=== PATIENT | male | born 1935 | race Caucasian/White ===

== ENCOUNTER 2018-07-21 21:06 | Inpatient (IN) | payer MEDICARE ==
[~2018-07-21] VITALS: Ht 182.9 cm; Wt 66.2 kg
[~2018-07-21 21:06] MED LIST: ASPIRIN81 MG PO; BENICAR HCT 401 EAC1 PO; CALCITRIOL0.25 MCG PO; MULTAQ 400MG T400 MG PO; PLAVIX75 MG PO; PRAVASTATIN SOD40 MG PO; PRAVASTATIN SOD80 MG PO; PRILOSEC OTC20 MG PO; TRAZODONE HCL50 MG PO; nasacort
--- OUTSIDE RECORDS SUMMARY | 2018-07-21 21:10 | XMS REPORT | Continuity of Care Document ---
Author Author Juan Antonio wright [facility] Interface Address Unknown Phone Unavailable Problems Problem Status Onset Date Classification Date Reported Comments Source PROSTATE CANCER Active 04/27/2018 [facility] DX: R35.0=FREQUENCY OF MICTURITION, R39. Active 01/11/2018 [facility] R35.0 - FREQUENCY OF MICTURITION Active 01/01/2018 [facility] R97.20 - ELEVATED PROSTATE SPECIFIC ANT Active 08/05/2017 [facility] Enlarged prostate with lower urinary tract symptoms Active Problem 07/19/2018 [facility], [facility] Wright,[facility] Cataract Resolved Problem 07/19/2018 [facility], A[facility] Wright,[facility] Arrhythmia Resolved Problem 07/19/2018 [facility], ALAYNA Wright,[facility] Bone fracture Resolved Problem 07/19/2018 [facility], ALAYNA Wright,[facility] Acid reflux Resolved Problem 07/19/2018 [facility], ALAYNA Wright,[facility] Frequency of micturition Active Problem 07/19/2018 [facility], ALAYNA Wright,[facility] Malignant neoplasm of prostate Active Problem 07/19/2018 [facility], ALAYNA Wright,[facility] Prophylactic antibiotic Active Problem 07/19/2018 [facility], ALAYNA Wright,[facility] Elevated PSA Active Problem 07/19/2018 [facility], ALAYNA Wright,[facility] Prostate cancer screening Active Problem 07/19/2018 [facility], ALAYNA Wright,[facility] Urgency of urination Active Problem 07/19/2018 [facility], ALAYNA Wright,[facility] MALIGNANT NEOPLASM OF PROSTATE Active [facility] FREQUENCY OF MICTURITION Active [facility] Medications Medication Details Route Status Patient Instructions Ordering Provider Order Date Source Ceftriaxone 1 gm, Route: IM, Drug form: PDR/INJ, ONCE, Dosing Weight 78.182, kg, Start date: 12/13/17 0:53:00 CDT, Stop date: 12/13/17 0:53:00 CDT No Longer Active 12/13/2017 [facility] Nitrofurantoin 100 MG Oral Capsule [Macrobid] 100 mg=1 cap, PO, BID, pt to start the evening prior to the procedure and please assist pt to find one fleets enema, X 7 day, # 14 cap, 0 Refill(s), Pharmacy: [facility] [id number] No Longer Active 11/09/2017 [facility] Nitrofurantoin 100 MG Oral Capsule [Macrobid] 100 mg=1 cap, PO, BID, X 30 day, # 60 cap, 0 Refill(s), Pharmacy: [facility] [id number] No Longer Active 07/30/2017 [facility] Allergies, Adverse Reactions, Alerts Substance Category Reaction Severity Reaction type Status Date Reported Comments Source Immunizations Immunization Date Given Site Status Last Updated Comments Source Results Order Name Results Value Reference Range Date Interpretation Comments Source Abdomen/Pelvis wo IV contrast CT Abdomen/Pelvis wo IV contrast CT Clinical Indication: - pt refused IV contrast per kidney DrGrace. Comparison: 12/07/2011. TECHNIQUE: Sequential trans-axial images were obtained through the abdomen and pelvis without the administration of IV iodinated contrast. Coronal and sagittal reconstructions were obtained. Dose: UIE=474 mGy-cm Findings: Lower thorax: Minimal scarring the lungs bilaterally. Liver: Normal. Gallbladder: Surgically absent. Spleen: Normal. Pancreas: Normal. Adrenals: Normal. Kidneys: Bilateral perinephric stranding. 2 mm nonobstructing calculus within the lower pole of the right kidney. No hydronephrosis. Bladder: Normal. Reproductive organs: Normal. Abdominal and pelvic lymph nodes: Normal. Vasculature: Severe atherosclerotic disease of the abdominal aorta. There is a 3.2 cm infrarenal abdominal aortic aneurysm which is unchanged from the prior study. Coronary calcifications. Bowel: Diverticulosis of the colon. No evidence of diverticulitis. Large duodenal diverticulum. Peritoneum: Normal. Osseous structures: Spondylolysis at L5. There is grade 1 anterolisthesis of L5 on S1. Mild compression fracture of T11 with loss of 10% of the height of vertebral body. Prior median sternotomy. IMPRESSION: Right nephrolithiasis but no hydronephrosis or definite ureteral calculus. Diverticulosis without evidence of diverticulitis. No evidence of metastasis. SL: SOPHIA 01/27/2018 - - Read by: Jim Piper MD Dictated Date/time: 01/28/18 02:09 Electronically Signed by: Jim Piper MD 01/28/18 02:20 FINAL REPORT [facility] Bone scan NM Bone scan NM Study: Bone scan NM Clinical Indication: - prostate cancer Comparison: Nuclear medicine bone scan from 12/07/2011. CT abdomen and pelvis from 01/27/2018. TECHNIQUE: Approximately 4 hours after the intravenous administration of 25 mCi of technetium 99m MDP, delayed whole-body images were obtained in the anterior and posterior projections. Additional images of the calvarium, chest, and pelvis were acquired. FINDINGS: Subtle focus of uptake in the mid left posterior cervical spine is seen, likely correlating to degenerative change. Degenerative change of the right sternoclavicular joint is noted. 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 Degenerative changes in the bilateral mid feet are seen. Osteoarthrosis of the right 1st MTP joint is also seen. Subtle globular uptake in the region of the greater trochanter of the right femur is also present. Normal soft tissue, renal, and bladder activity is identified. IMPRESSION: 1. Degenerative changes throughout the osseous structures, as described above. 2. Subtle globular uptake in the region of the greater trochanter of the right femur. No corresponding abnormality is seen on CT of the abdomen and pelvis from 01/27/2018. This may correspond to an area of mild enthesitis. 3. No definitive evidence of osteoblastic metastatic disease. SL: [id number] 01/27/2018 - - Read by: Hai Sargent MD Dictated Date/time: 01/27/18 13:35 Electronically Signed by: Hai Sargent MD 01/27/18 13:40 FINAL REPORT [facility] URINE AND STOOL POC UA LeukEst Negative *NA* (12/30/17 10:37 AM) Negative 12/30/2017 [facility] URINE AND STOOL POC UA Nit Negative *NA* (12/30/17 10:37 AM) Negative 12/30/2017 [facility] URINE AND STOOL POC UA Glu Negative mg/dL Negative mg/dL 12/30/2017 [facility] URINE AND STOOL POC UA Prot Negative mg/dL Negative mg/dL 12/30/2017 [facility] URINE AND STOOL POC UA pH 5.5 5.0 - 8.0 12/30/2017 [facility] URINE AND STOOL POC UA Bili Negative *NA* (12/30/17 10:37 AM) Negative 12/30/2017 [facility] URINE AND STOOL POC UA Ket Negative mg/dL Negative mg/dL 12/30/2017 [facility] URINE AND STOOL POC UA Bld Negative *NA* (12/30/17 10:37 AM) Negative 12/30/2017 [facility] URINE AND STOOL POC UA Uro 0.2 EU/dL 0.1 - 1.0 12/30/2017 [facility] URINE AND STOOL POC UA Color Yellow *NA* (12/30/17 10:37 AM) Yellow 12/30/2017 [facility] URINE AND STOOL POC UA SG 1.025 <=1.030 12/30/2017 [facility] URINE AND STOOL POC UA Turbidity Clear *NA* (12/30/17 10:37 AM) Clear 12/30/2017 [facility] URINE AND STOOL POC UA Ket Trace mg/dL Negative mg/dL 12/13/2017 [facility] URINE AND STOOL POC UA Bld Negative *NA* (12/13/17 10:48 AM) Negative 12/13/2017 [facility] URINE AND STOOL POC UA Bili Small *ABN* (12/13/17 10:48 AM) Negative 12/13/2017 [facility] URINE AND STOOL POC UA Uro 0.2 EU/dL 0.1 - 1.0 12/13/2017 [facility] URINE AND STOOL POC UA Nit Negative *NA* (12/13/17 10:48 AM) Negative 12/13/2017 [facility] URINE AND STOOL POC UA LeukEst Negative *NA* (12/13/17 10:48 AM) Negative 12/13/2017 [facility] URINE AND STOOL POC UA Glu Negative mg/dL Negative mg/dL 12/13/2017 [facility] URINE AND STOOL POC UA Turbidity Clear *NA* (12/13/17 10:48 AM) Clear 12/13/2017 [facility] URINE AND STOOL POC UA pH 5.5 5.0 - 8.0 12/13/2017 [facility] URINE AND STOOL POC UA SG 1.020 <=1.030 12/13/2017 [facility] URINE AND STOOL POC UA Prot Negative mg/dL Negative mg/dL 12/13/2017 [facility] URINE AND STOOL POC UA Color Yellow *NA* (12/13/17 10:48 AM) Yellow 12/13/2017 [facility] URINE AND STOOL POC UA LeukEst Negative *NA* (08/31/17 1:15 PM) Negative 08/31/2017 [facility] URINE AND STOOL POC UA Nit Negative *NA* (08/31/17 1:15 PM) Negative 08/31/2017 [facility] URINE AND STOOL POC UA Turbidity Clear *NA* (08/31/17 1:15 PM) Clear 08/31/2017 [facility] URINE AND STOOL POC UA Ket Negative mg/dL Negative mg/dL 08/31/2017 [facility] URINE AND STOOL POC UA Color Yellow *NA* (08/31/17 1:15 PM) Yellow 08/31/2017 [facility] URINE AND STOOL POC UA pH 5.5 5.0 - 8.0 08/31/2017 [facility] URINE AND STOOL POC UA SG 1.015 <=1.030 08/31/2017 [facility] URINE AND STOOL POC UA Uro 0.2 EU/dL 0.1 - 1.0 08/31/2017 [facility] URINE AND STOOL POC UA Bld Negative *NA* (08/31/17 1:15 PM) Negative 08/31/2017 [facility] URINE AND STOOL POC UA Bili Negative *NA* (08/31/17 1:15 PM) Negative 08/31/2017 [facility] URINE AND STOOL POC UA Glu Negative mg/dL Negative mg/dL 08/31/2017 [facility] URINE AND STOOL POC UA Prot Negative mg/dL Negative mg/dL 08/31/2017 [facility] URINE AND STOOL POC UA Prot Negative mg/dL Negative mg/dL 07/19/2017 [facility] URINE AND STOOL POC UA pH 5.5 5.0 - 8.0 07/19/2017 [facility] URINE AND STOOL POC UA Glu Negative mg/dL Negative mg/dL 07/19/2017 [facility] URINE AND STOOL POC UA Ket Negative mg/dL Negative mg/dL 07/19/2017 [facility] URINE AND STOOL POC UA Bili Negative *NA* (07/19/17 10:01 AM) Negative 07/19/2017 [facility] URINE AND STOOL POC UA Bld Negative *NA* (07/19/17 10:01 AM) Negative 07/19/2017 [facility] URINE AND STOOL POC UA Nit Negative *NA* (07/19/17 10:01 AM) Negative 07/19/2017 [facility] URINE AND STOOL POC UA LeukEst Negative *NA* (07/19/17 10:01 AM) Negative 07/19/2017 [facility] URINE AND STOOL POC UA Uro 0.2 EU/dL 0.1 - 1.0 07/19/2017 [facility] URINE AND STOOL POC UA Turbidity Clear *NA* (07/19/17 10:01 AM) Clear 07/19/2017 [facility] URINE AND STOOL POC UA Color Yellow *NA* (07/19/17 10:01 AM) Yellow 07/19/2017 [facility] URINE AND STOOL POC UA SG 1.020 <=1.030 07/19/2017 [facility] URINE AND STOOL POC UA LeukEst Negative *NA* (03/15/17 9:27 AM) Negative 03/15/2017 [facility] URINE AND STOOL POC UA Color Yellow *NA* (03/15/17 9:27 AM) Yellow 03/15/2017 [facility] URINE AND STOOL POC UA Uro 1.0 EU/dL 0.1 - 1.0 03/15/2017 [facility] URINE AND STOOL POC UA Bld Negative *NA* (03/15/17 9:27 AM) Negative 03/15/2017 [facility] URINE AND STOOL POC UA Nit Negative *NA* (03/15/17 9:27 AM) Negative 03/15/2017 [facility] URINE AND STOOL POC UA Bili Negative *NA* (03/15/17 9:27 AM) Negative 03/15/2017 [facility] URINE AND STOOL POC UA Ket Negative mg/dL Negative mg/dL 03/15/2017 [facility] URINE AND STOOL POC UA pH 6.5 5.0 - 8.0 03/15/2017 [facility] URINE AND STOOL POC UA Glu Negative mg/dL Negative mg/dL 03/15/2017 [facility] URINE AND STOOL POC UA SG 1.015 <=1.030 03/15/2017 [facility] URINE AND STOOL POC UA Prot Negative mg/dL Negative mg/dL 03/15/2017 [facility] URINE AND STOOL POC UA Turbidity Clear *NA* (03/15/17 9:27 AM) Clear 03/15/2017 [facility] Vital Signs Vital Sign Value Date Comments Source Weight 79.545 12/30/2017 [facility] BMI Calculated 23.78 12/30/2017 [facility] Height 182.88 cm 12/30/2017 [facility] Heart Rate 86 12/30/2017 [facility] Systolic (mm Hg) 154 12/30/2017 [facility] Diastolic (mm Hg) 81 12/30/2017 [facility] BMI Calculated 23.38 12/13/2017 [facility] Height 182.88 cm 12/13/2017 [facility] Weight 78.182 12/13/2017 [facility] Heart Rate 84 12/13/2017 [facility] Systolic (mm Hg) 155 12/13/2017 [facility] Diastolic (mm Hg) 79 12/13/2017 [facility] Weight 79.545 08/31/2017 [facility] BMI Calculated 22.52 08/31/2017 [facility] Systolic (mm Hg) 146 08/31/2017 [facility] Diastolic (mm Hg) 82 08/31/2017 [facility] Height 187.96 cm 08/31/2017 [facility] Heart Rate 77 08/31/2017 [facility] Weight 79.545 07/19/2017 [facility] Heart Rate 66 07/19/2017 [facility] Systolic (mm Hg) 132 07/19/2017 [facility] Diastolic (mm Hg) 76 07/19/2017 [facility] Weight 80.455 03/15/2017 [facility] BMI Calculated 24.06 03/15/2017 [facility] Height 182.88 cm 03/15/2017 [facility] Heart Rate 70 03/15/2017 [facility] Systolic (mm Hg) 140 03/15/2017 [facility] Diastolic (mm Hg) 84 03/15/2017 [facility] Encounters Location Location Details Encounter Type Encounter Number Reason For Visit Attending Provider ADM Date DC Date Status Source Outpatient [id number] [facility]2015 [id number]/24[facility]2015 [facility] [id number] [facility] 09[facility]16[facility]2015 [facility] [place] [facility] [id number] [facility] 01/16[facility]2016 [facility] [place] [facility] [id number] [facility] 05[facility]07[facility]2016 [facility] [place] [facility] [id number] [facility] 05/11/2016 [facility] [id number] [facility] 05/14/2016 [facility] [place] [facility] [id number] TUNG BREANNE 08/24/2016 Active [facility] Outpatient [id number] TUNG BREANNE 11/30/2016 Active [facility] Outpatient [id number] TUNG BREANNE 03/15/2017 Active [facility] Outpatient [id number] Lukasz Mayers 03/15/2017 03/16/2017 [facility] Outpatient [id number] TUNG BREANNE 07/19/2017 Active [facility] Outpatient [id number] Lukaszcale Mayers 07/19/2017 07/20/2017 [facility] Outpatient [id number] TUNG BREANNE 08/31/2017 Active [facility] Outpatient [id number] Lukaszcale Mayers 08/31/2017 09/01/2017 [facility] Outpatient Imaging [place] [facility] [id number] Tung Breanne 11/08/2017 11/08/2017 [facility] Outpatient [id number] TUNG BREANNE 12/13/2017 Active [facility] Outpatient [id number] PROCEDURE ROOM 3 12/13/2017 Active [facility] Outpatient [id number] Tung Breanne 12/13/2017 12/14/2017 [facility] U[facility] Outpatient [id number] Tung Breanne 12/13/2017 12/14/2017 [facility] Outpatient [id number] TUNG BERANNE 12/20/2017 Active [facility] Ambulatory Pre- Reg [id number] Tung Breanne 12/20/2017 12/20/2017 [facility] Outpatient [id number] TUNG BREANNE 12/30/2017 Active [facility] Outpatient [id number] Tung Breanne 12/30/2017 12/31/2017 [facility] Outpatient [id number] TUNG BREANNE 02/14/2018 Active [facility] Outpatient [id number] TUNG BREANNE 04/11/2018 Active [facility] Recurring [id number] Nestor Yang 05/03/2018 06/02/2018 [facility] Outpatient [id number] TUNG BREANNE 07/25/2018 Active [facility] Procedures Procedure Code Date Perfomer Comments Source Complex uroflowmetry (eg, calibrated electronic equipment) 38536 12/30/2017 [facility] Measurement of post-voiding residual urine and/or bladder capacity by ultrasound, non-imaging 58171 12/30/2017 [facility] Injection, anesthetic agent; other peripheral nerve or branch 50903 12/13/2017 [facility] Measurement of post-voiding residual urine and/or bladder capacity by ultrasound, non-imaging 21094 12/13/2017 [facility] Complex uroflowmetry (eg, calibrated electronic equipment) 17840 12/13/2017 [facility] Biopsy, prostate; needle or punch, single or multiple, any approach 90395 12/13/2017 [facility] Complex uroflowmetry (eg, calibrated electronic equipment) 90773 07/19/2017 [facility] Measurement of post-voiding residual urine and/or bladder capacity by ultrasound, non-imaging 64824 07/19/2017 [facility] Cataract surgery [id number] [facility] Heart procedure [id number] [facility] Insertion of arterial stent [id number] [facility] V[facility]ctomy [id number] [facility] Cataract surgery [id number] [facility] Heart procedure [id number] [facility]ion of arterial [id number] [facility] [place] [facility] [id number] [facility] Cataract surgery [id number] [facility] Heart procedure [id number] [facility] Insertion of arterial stent [id number] [facility] Vasectomy [id number] [facility]
--- OUTSIDE RECORDS SUMMARY | 2018-07-21 21:10 | XMS REPORT | Clinical Summary ---
Author Author [facility] Address Unknown Phone Unavailable Care Team Providers Care Electrical Contacts Adjuster Name Role Phone Anish Negrete MD PCP Allergies No Known Allergies Medications End Date Status Medication Sig Dispensed Refills Start Date Active pantoprazole (PROTONIX) TK 1 T PO QD 0 40 MG EC tablet 7 Active dronedarone (MULTAQ) 400 Take 400 mg 0 mg tablet by mouth 2 (two) times a day with meals. Active clopidogrel (PLAVIX) 75 Take 75 mg by 0 mg tablet mouth daily. Active aspirin (ECOTRIN) 81 MG Take 81 mg by 0 enteric coated tablet mouth daily. Active calcitriol (ROCALTROL) Take 0.25 mcg 0 0.25 MCG capsule by mouth daily. Active olmesartan (BENICAR) 5 MG Take 5 mg by 0 tablet mouth daily. Active pravastatin (PRAVACHOL) Take 80 mg by 0 40 MG tablet mouth daily. Active traZODone (DESYREL) 100 Take 100 mg 0 MG tablet by mouth nightly. Active Problems Problem Noted Date Arthralgia of shoulder region, left 03/08/2017 Social History Date Tobacco Use Types Packs/Day Years Used Never Smoker Smokeless Tobacco: Never Used Alcohol Use Drinks/Week oz/Week Comments No Sex Assigned at Date Recorded Not on file Industry Job Start Date Occupation Not on file Not on file Not on file Travel End Travel History Travel Start No recent travel history available. Last Filed Vital Signs Not on file Plan of Treatment Health Maintenance Due Date Last Done Comments SHINGLES VACCINES (#1) 1985 65+ PNEUMOCOCCAL VACCINE 01/30/2000 (1 of 2 - PCV13) PNEUMOCOCCAL 01/30/2000 POLYSACCHARIDE VACCINE AGE 65 AND OVER INFLUENZA VACCINE 11/24/2017 Results Not on fileafter 07/20/2017 Insurance Payer Benefit Subscriber ID Type Phone Address Plan / Group AETNA AETNA xxxxxxxxxx HMO HMO,POS,EP O, [facility] MEDICARE MEDICARE xxxxxxxxxx Medicare [place], [place] PART A AND B Advance Directives Patient has advance care planning documents on file. For more information, annie phelan contact: Bertin Hayden [address] [place] [address]
--- OUTSIDE RECORDS SUMMARY | 2018-07-21 21:11 | XMS REPORT | Summary of Care ---
Author Author [facility] Address Unknown Phone Unavailable Encounter HQ Wai(FIN) [id number] Date(s): 12/20/17 - 12/20/17 [facility] [address], [address] [phone] Attending Physician: Haroldo Raymundo MD Vital Signs No data available for this section Problem List Condition Effective Dates Status Health Status Informant Enlarged prostate Active with lower urinary tract symptoms(Confirmed) Cataract(Confirmed) Resolved Arrhythmia(Confirmed Resolved ) Bone Resolved fracture(Confirmed) Acid Resolved reflux(Confirmed) Frequency of Active micturition(Confirme d) Malignant neoplasm Active of prostate(Confirmed) Prophylactic Active antibiotic(Confirmed ) Elevated Active PSA(Confirmed) Prostate cancer Active screening(Confirmed) Urgency of Active urination(Confirmed) Allergies, Adverse Reactions, Alerts Substance Reaction Severity Status NKDA Active Medications No data available for this section Results No data available for this section Immunizations No data available for this section Procedures Procedure Date Related Diagnosis Body Site Status Cataract surgery Completed Heart procedure Completed Insertion of arterial stent Completed Vasectomy Completed Social History Social History Type Response Substance Abuse Use: None. Exercise Exercise type: Walking.1, 2 Employment/School Status: Retired. Alcohol Never Smoking Status Never smoker; Ready to change: No; Exposure to Tobacco Smoke None; Cigarette Smoking Last 365 Days No; Reg Smoking Cessation Counseling No entered on: 04/11/18 1Golf 3-4 times a week 2Minimal Assessment and Plan No data available for this section
--- OUTSIDE RECORDS SUMMARY | 2018-07-21 21:11 | XMS REPORT | Summary of Care ---
Author Author [facility] [place] [facility] Address Unknown Phone Unavailable Encounter MARTHA Carreno(CHARIS) [id number] Date(s): 03/15/17 - 03/15/17 [facility] [address] [facility], [address] [phone] Discharge Disposition: Home or Self Care Attending Physician: Haroldo Raymundo MD Referring Physician: Lukasz Mayers MD Vital Signs Most recent to 1 oldest [Reference Range]: Height 182.88 cm (03/15/17 9:39 AM) Blood Pressure 140/84 mmHg [90-140/60-90 mmHg] (03/15/17 9:39 AM) Peripheral Pulse 70 bpm Rate [60-100 bpm] (03/15/17 9:39 AM) Weight 80.455 kg (03/15/17 9:39 AM) Body Mass Index 24.06 m2 (03/15/17 9:39 AM) Problem List Condition Effective Dates Status Health Status Informant Enlarged prostate Active with lower urinary tract symptoms(Confirmed) Cataract(Confirmed) Resolved Arrhythmia(Confirmed Resolved ) Bone Resolved fracture(Confirmed) Acid Resolved reflux(Confirmed) Frequency of Active micturition(Confirme d) Malignant neoplasm Active of prostate(Confirmed) Elevated Active PSA(Confirmed) Prostate cancer Active screening(Confirmed) Urgency of Active urination(Confirmed) Allergies, Adverse Reactions, Alerts Substance Reaction Severity Status NKDA Active Medications No Known Medications Results URINE AND STOOL Most recent to 1 oldest [Reference Range]: POC UA Turbidity Clear [Clear] *NA* (03/15/17 9:27 AM) POC UA Color Yellow [Yellow] *NA* (03/15/17 9:27 AM) POC UA pH [5.0-8.0] 6.5 (03/15/17 9:27 AM) POC UA SG [<=1.030] 1.015 (03/15/17 9:27 AM) POC UA Glu [Negative Negative mg/dL mg/dL] *NA* (03/15/17 9:27 AM) POC UA Bld Negative [Negative] *NA* (03/15/17 9:27 AM) POC UA Ket [Negative Negative mg/dL mg/dL] *NA* (03/15/17 9:27 AM) POC UA Prot Negative mg/dL [Negative mg/dL] *NA* (03/15/17 9:27 AM) POC UA Uro [0.1-1.0 1.0 EU/dL EU/dL] (03/15/17 9:27 AM) POC UA Bili Negative [Negative] *NA* (03/15/17 9:27 AM) POC UA LeukEst Negative [Negative] *NA* (03/15/17 9:27 AM) POC UA Nit Negative [Negative] *NA* (03/15/17 9:27 AM) Immunizations No data available for this section Procedures Procedure Date Related Diagnosis Body Site Cataract surgery Heart procedure Insertion of arterial stent Vasectomy Social History Social History Type Response Substance Abuse Use: None. Exercise Exercise type: Walking.1, 2 Employment/School Status: Retired. Alcohol Never Smoking Status Unknown if ever smoked; Ready to change: No; Exposure to Tobacco Smoke None; Cigarette Smoking Last 365 Days No; Reg Smoking Cessation Counseling No 1Golf 3-4 times a week 2Minimal Assessment and Plan No data available for this section
--- OUTSIDE RECORDS SUMMARY | 2018-07-21 21:11 | XMS REPORT | Summary of Care ---
Author Author [facility] Organization [facility] Address Unknown Phone Unavailable Encounter MARTHA Carreno(CHARIS) [id number] Date(s): 05/03/18 - 06/01/18 [facility] [address] [place] [address]- [phone] Discharge Disposition: Home or Self Care Attending Physician: Nestor Lopez MD Vital Signs No data available for [...]
--- OUTSIDE RECORDS SUMMARY | 2018-07-21 21:11 | XMS REPORT | Summary of Care ---
Author Author [facility] [place] [facility] Address Unknown Phone Unavailable Encounter HQ Wai(FIN) [id number] Date(s): 12/13/17 - 12/13/17 [facility] [address] [facility], [address] [phone] Discharge Disposition: Home or Self Care Attending Physician: Haroldo Raymundo MD Vital Signs [...]
--- OUTSIDE RECORDS SUMMARY | 2018-07-21 21:11 | XMS REPORT | Summary of Care ---
Author Author [facility] [place] [facility] [place] Address Unknown Phone Unavailable Encounter MARTHA Carreno(CHARIS) [id number] Date(s): 12/30/17 - 12/30/17 [facility] [address] [address]- Discharge Disposition: Home or Self Care Attending Physician: Haroldo Raymundo MD Vital Signs Most recent to 1 oldest [Reference Range]: Height 182.88 cm (12/30/17 10:21 AM) Blood Pressure 154/81 mmHg [90-140/60-90 mmHg] *HI* (12/30/17 10:21 AM) Peripheral Pulse 86 bpm Rate [60-100 bpm] (12/30/17 10:21 AM) Weight 79.545 kg (12/30/17 10:21 AM) Body Mass Index 23.78 m2 (12/30/17 10:21 AM) Problem List Condition Effective Dates Status [...] Range]: POC UA Turbidity Clear [Clear] *NA* (12/30/17 10:37 AM) POC UA Color Yellow [Yellow] *NA* (12/30/17 10:37 AM) POC UA pH [5.0-8.0] 5.5 (12/30/17 10:37 AM) POC UA SG [<=1.030] 1.025 (9/6/18 10:37 AM) POC UA Glu [Negative Negative mg/dL mg/dL] *NA* (12/30/17 10:37 AM) POC UA Bld Negative [Negative] *NA* (12/30/17 10:37 AM) POC UA Ket [Negative Negative mg/dL mg/dL] *NA* (12/30/17 10:37 AM) POC UA Prot Negative mg/dL [Negative mg/dL] *NA* (12/30/17 10:37 AM) POC UA Uro [0.1-1.0 0.2 EU/dL EU/dL] (12/30/17 10:37 AM) POC UA Bili Negative [Negative] *NA* (12/30/17 10:37 AM) POC UA LeukEst Negative [Negative] *NA* (12/30/17 10:37 AM) POC UA Nit Negative [Negative] *NA* (12/30/17 10:37 AM) Immunizations No data available for this section Procedures Procedure Date Related Diagnosis Body Site Status Complex uroflowmetry (eg, calibrated 12/30/17 Completed electronic equipment) Measurement of post-voiding residual urine 12/30/17 Completed and/or bladder capacity by ultrasound, non-imaging Cataract surgery Completed Heart procedure Completed Insertion [...]
--- OUTSIDE RECORDS SUMMARY | 2018-07-21 21:11 | XMS REPORT | Summary of Care ---
Author Author [facility] Organization [facility] Address Unknown Phone Unavailable Encounter MARTHA Carreno(CHARIS) [id number] Date(s): 07/19/17 - 07/19/17 [facility] [address] [facility], [address] [phone] Discharge Disposition: Home or Self Care Attending Physician: Haroldo Raymundo MD Referring Physician: Lukasz Mayers MD Vital Signs Most recent to 1 oldest [Reference Range]: Blood Pressure 132/76 mmHg [90-140/60-90 mmHg] (07/19/17 10:06 AM) Peripheral Pulse 66 bpm Rate [60-100 bpm] (07/19/17 10:06 AM) Weight 79.545 kg (07/19/17 10:06 AM) Problem List Condition Effective Dates Status Health Status Informant Enlarged prostate Active with lower urinary tract symptoms(Confirmed) Cataract(Confirmed) Resolved Arrhythmia(Confirmed Resolved ) Bone Resolved fracture(Confirmed) Acid Resolved reflux(Confirmed) Frequency of Active micturition(Confirme d) Malignant neoplasm Active of prostate(Confirmed) Elevated Active PSA(Confirmed) Prostate cancer Active screening(Confirmed) Urgency of Active urination(Confirmed) Allergies, Adverse Reactions, Alerts Substance Reaction Severity Status NKDA Active Medications Macrobid 100 mg oral capsule 100 mg=1 cap, PO, BID, X 30 day, # 60 cap, 0 Refill(s), Pharmacy: [facility] [id number] Start Date: 07/30/17 Stop Date: 08/29/17 Status: Completed Results URINE AND STOOL Most recent to 1 oldest [Reference Range]: POC UA Turbidity Clear [Clear] *NA* (07/19/17 10:01 AM) POC UA Color Yellow [Yellow] *NA* (07/19/17 10:01 AM) POC UA pH [5.0-8.0] 5.5 (07/19/17 10:01 AM) POC UA SG [<=1.030] 1.020 (07/19/17 10:01 AM) POC UA Glu [Negative Negative mg/dL mg/dL] *NA* (07/19/17 10:01 AM) POC UA Bld Negative [Negative] *NA* (07/19/17 10:01 AM) POC UA Ket [Negative Negative mg/dL mg/dL] *NA* (07/19/17 10:01 AM) POC UA Prot Negative mg/dL [Negative mg/dL] *NA* (07/19/17 10:01 AM) POC UA Uro [0.1-1.0 0.2 EU/dL EU/dL] (07/19/17 10:01 AM) POC UA Bili Negative [Negative] *NA* (07/19/17 10:01 AM) POC UA LeukEst Negative [Negative] *NA* (07/19/17 10:01 AM) POC UA Nit Negative [Negative] *NA* (07/19/17 10:01 AM) Immunizations No data available for this section Procedures Procedure Date Related Diagnosis Body Site Status Complex uroflowmetry (eg, calibrated 07/19/17 Completed electronic equipment) Measurement of post-voiding residual urine 07/19/17 Completed and/or bladder capacity by ultrasound, non-imaging [...] Reg Smoking Cessation Counseling No entered on: 08/31/17 1Golf 3-4 times a week 2Minimal Assessment and Plan No data available for this section
--- OUTSIDE RECORDS SUMMARY | 2018-07-21 21:11 | XMS REPORT | Summary of Care ---
Author Author [facility] Organization [facility] Address Unknown Phone Unavailable Encounter MARTHA Carreno(CHARIS) [id number] Date(s): 12/13/17 - 12/13/17 [facility] [address] [facility], [address] [phone] Discharge Disposition: Home or Self Care Attending Physician: Haroldo Raymundo MD Referring Physician: Lukasz Mayers MD Vital Signs Most recent to 1 oldest [Reference Range]: Height 182.88 cm (12/13/17 11:29 AM) Blood Pressure 155/79 mmHg [90-140/60-90 mmHg] *HI* (12/13/17 11:29 AM) Peripheral Pulse 84 bpm Rate [60-100 bpm] (12/13/17 11:29 AM) Weight 78.182 kg (12/13/17 11:29 AM) Body Mass Index 23.38 m2 (12/13/17 11:29 AM) Problem List Condition Effective Dates Status [...] Substance Reaction Severity Status NKDA Active Medications cefTRIAXone 1 gm, Route: IM, Drug form: PDR/INJ, ONCE, Dosing Weight 78.182, kg, Start date: 12/13/17 0:53:00 CDT, Stop date: 12/13/17 0:53:00 CDT Start Date: 12/13/17 Stop Date: 12/19/17 Status: Completed Macrobid 100 mg oral capsule 100 mg=1 cap, PO, BID, pt to start the evening prior to the procedure and please assist pt to find one fleets enema, X 7 day, # 14 cap, 0 Refill(s), Pharmacy: [email or web address] [id number] Start Date: 11/09/17 Stop Date: 11/16/17 Status: Completed Results URINE AND STOOL Most recent to 1 oldest [Reference Range]: POC UA Turbidity Clear [Clear] *NA* (12/13/17 10:48 AM) POC UA Color Yellow [Yellow] *NA* (12/13/17 10:48 AM) POC UA pH [5.0-8.0] 5.5 (12/13/17 10:48 AM) POC UA SG [<=1.030] 1.020 (12/13/17 10:48 AM) POC UA Glu [Negative Negative mg/dL mg/dL] *NA* (12/13/17 10:48 AM) POC UA Bld Negative [Negative] *NA* (12/13/17 10:48 AM) POC UA Ket [Negative Trace mg/dL mg/dL] *ABN* (12/13/17 10:48 AM) POC UA Prot Negative mg/dL [Negative mg/dL] *NA* (12/13/17 10:48 AM) POC UA Uro [0.1-1.0 0.2 EU/dL EU/dL] (12/13/17 10:48 AM) POC UA Bili Small [Negative] *ABN* (12/13/17 10:48 AM) POC UA LeukEst Negative [Negative] *NA* (12/13/17 10:48 AM) POC UA Nit Negative [Negative] *NA* (12/13/17 10:48 AM) Immunizations No data available for this section Procedures Procedure Date Related Diagnosis Body Site Status Biopsy, prostate; needle or punch, single or 12/13/17 Completed multiple, any approach Complex uroflowmetry (eg, calibrated 12/13/17 Completed electronic equipment) Injection, anesthetic agent; other peripheral 12/13/17 Completed nerve or branch Measurement of post-voiding residual urine 12/13/17 Completed and/or bladder capacity by ultrasound, non-imaging [...]
--- OUTSIDE RECORDS SUMMARY | 2018-07-21 21:11 | XMS REPORT | Summary of Care ---
Author Author [facility] Organization [facility] [place] Address Unknown Phone Unavailable Encounter HQ Wai(FIN) [id number] Date(s): 11/08/17 - 11/08/17 [facility] [address] [place] [phone] Attending Physician: Haroldo Raymundo MD Referring Physician: Haroldo Raymundo MD Vital Signs No [...]
--- OUTSIDE RECORDS SUMMARY | 2018-07-21 21:11 | XMS REPORT | Summary of Care ---
Author Author [facility] Organization [facility] Address Unknown Phone Unavailable Encounter MARTHA Carreno(CHARIS) [id number] Date(s): 08/31/17 - 08/31/17 [facility] [address] [facility], [address] [phone] Discharge Disposition: Home or Self Care Attending Physician: Haroldo Raymundo MD Referring Physician: Lukasz Mayers MD Vital Signs Most recent to 1 oldest [Reference Range]: Height 187.96 cm (08/31/17 1:17 PM) Blood Pressure 146/82 mmHg [90-140/60-90 mmHg] *HI* (08/31/17 1:17 PM) Peripheral Pulse 77 bpm Rate [60-100 bpm] (08/31/17 1:17 PM) Weight 79.545 kg (08/31/17 1:17 PM) Body Mass Index 22.52 m2 (08/31/17 1:17 PM) Problem List Condition Effective Dates Status Health [...] Range]: POC UA Turbidity Clear [Clear] *NA* (08/31/17 1:15 PM) POC UA Color Yellow [Yellow] *NA* (08/31/17 1:15 PM) POC UA pH [5.0-8.0] 5.5 (08/31/17 1:15 PM) POC UA SG [<=1.030] 1.015 (08/31/17 1:15 PM) POC UA Glu [Negative Negative mg/dL mg/dL] *NA* (08/31/17 1:15 PM) POC UA Bld Negative [Negative] *NA* (08/31/17 1:15 PM) POC UA Ket [Negative Negative mg/dL mg/dL] *NA* (08/31/17 1:15 PM) POC UA Prot Negative mg/dL [Negative mg/dL] *NA* (08/31/17 1:15 PM) POC UA Uro [0.1-1.0 0.2 EU/dL EU/dL] (08/31/17 1:15 PM) POC UA Bili Negative [Negative] *NA* (08/31/17 1:15 PM) POC UA LeukEst Negative [Negative] *NA* (08/31/17 1:15 PM) POC UA Nit Negative [Negative] *NA* (08/31/17 1:15 PM) Immunizations No data available for this section [...]
--- NOTE | 2018-07-21 21:50 | NUR ---
RADIOLOGY AT BEDSIDE FOR CXR AT THIS TIME.
--- NOTE | 2018-07-21 22:07 | Diagnostic Imaging Report ---
EXAMINATION: CHEST SINGLE (PORTABLE) INDICATION: Pneumonia. COMPARISON: None FINDINGS: AP view TUBES and LINES: None. LUNGS: Retrocardiac airspace opacity. PLEURA: No pleural effusion or pneumothorax. HEART AND MEDIASTINUM: The cardiomediastinal silhouette is unremarkable. There are atherosclerotic calcifications within the aorta. BONES AND SOFT TISSUES: No acute osseous lesion. Median sternotomy wires. Soft tissues are unremarkable. UPPER ABDOMEN: No free air under the diaphragm. IMPRESSION: Retrocardiac airspace opacity may represent atelectasis or developing pneumonia in the appropriate clinical setting. Signed by: DR. Fabio Lagunas MD on 07/21/2018 10:04 PM
[2018-07-21 22:14] LABS: BASOPHILS % 0.6 % (0.0-1.0); EOSINOPHILS # (AUTO) 0.1 (0.0-0.4); EOSINOPHILS % 2.1 % (0.0-6.0); HEMATOCRIT 37.7 % (38.2-49.6); HEMOGLOBIN 12.4 g/dL (14.0-18.0); LYMPHOCYTES # (AUTO) 0.7 (1.0-3.2); LYMPHOCYTES % 12.6 % (18.0-39.1); MEAN CORPUSCULAR HEMOGLOBIN 32.2 pg (28-32); MEAN CORPUSCULAR HGB CONC 32.9 g/dL (31-35); MEAN CORPUSCULAR VOLUME 97.9 fL (81-99); MONOCYTES # (AUTO) 0.5 (0.2-0.8); MONOCYTES % 9.9 % (4.4-11.3); NEUTROPHILS # (AUTO) 3.9 (2.1-6.9); NEUTROPHILS % 74.6 % (38.7-80.0); PLATELET COUNT 198 x10e3/uL (140-360); RED BLOOD COUNT 3.85 x10e6/uL (4.3-5.7); RED CELL DISTRIBUTION WIDTH 13.4 % (11.7-14.4)
[2018-07-21 22:30] LABS: ALBUMIN 3.4 g/dL (3.5-5.0); ALBUMIN/GLOBULIN RATIO 1.1 (0.8-2.0); ANION GAP 13.5 mmol/L (8-16); CALCIUM 9.5 mg/dL (8.4-10.2); CREATININE, SERUM 2.15 mg/dL (0.72-1.25); POTASSIUM 4.5 mmol/L (3.5-5.1)
[2018-07-21] MEDS ORDERED: CEFTRIAXONE SOD 1 GM/NS 50 ML 50 ML IV ONE (22:30)
[2018-07-21 22:36] LABS: CREATINE KINASE MB 3.3 ng/mL (0-5.0)
[2018-07-21] MEDS ORDERED: CEFTRIAXONE SOD 1 GM/NS 50 ML 50 ML IV SCH (23:15)
[2018-07-21] MEDS ORDERED: ASPIRIN 81 MG CHEW TAB PO ONE (23:15)
[2018-07-21] MEDS ORDERED: AZITHROMYCIN 500MG/NS 250 ML 250 ML ONE (23:20)
[2018-07-21] MEDS ORDERED: SODIUM CHLORIDE FLUSH 10 ML SYR INJ PRN (23:30)
[2018-07-21] MEDS ORDERED: TEMAZEPAM15 MG PO (23:32)
[2018-07-21] MEDS ORDERED: MULTAQ 400MG T400 MG PO (23:32)
[2018-07-21] MEDS ORDERED: PLAVIX75 MG PO (23:32)
[2018-07-21] MEDS ORDERED: CALCITRIOL0.25 MCG PO (23:33)
[2018-07-21] MEDS ORDERED: ASPIR 8181 MG PO (23:33)
[2018-07-21] MEDS ORDERED: PANTOPRAZOLE SO40 MG PO (23:33)
[2018-07-21] MEDS ORDERED: PRAVASTATIN SOD80 MG PO (23:34)
[2018-07-21] MEDS ORDERED: TRAZODONE HCL50 MG PO (23:35)
[2018-07-21] MEDS ORDERED: BENICAR20 MG PO (23:39)
[2018-07-21] MEDS: AZITHROMYCIN 500MG/NS 250 ML 250 ML IV SCH (23:40)
--- OUTSIDE RECORDS SUMMARY | 2018-07-21 23:41 | XMS REPORT | Clinical Summary ---
Author Author [facility] Address Unknown Phone Unavailable Care Team Providers Care Ship Fitter Name Role Phone Anish Negrete MD PCP [...] HMO,POS,EP O, MC/EC MEDICARE MEDICARE xxxxxxxxxx Medicare [place], [place] PART A AND B Advance Directives Patient has advance care planning documents on file. For more information, annie phelan contact: Bertin Hayden [address] [place] [address]
--- OUTSIDE RECORDS SUMMARY | 2018-07-21 23:42 | XMS REPORT ---
Author Author [facility] Address Unknown Phone Unavailable Care Team Providers Care Passenger Brakeman Name Role Phone Lucrecia EDMONDSON Unavailable Unavailable Problems This patient has no known problems. Allergies, Adverse Reactions, Alerts This patient has no known allergies or adverse reactions. Medications This patient has no known medications. Results Test Description Test Time Test Comments Text Results Atomic Results Result Comments CHEST SINGLE (PORTABLE) 2018-07-21 21:59:00 [place] [address] Patient Name: MISA PARIS MR #: [id number] : 1935 Age/Sex: 83/M Req #: [id number] Adm Physician: Ordered by: HUI MALDONADO PAYING TELLER Report #: [id number] Location: ER Room/Bed: Procedure: [id number] DX/CHEST SINGLE (PORTABLE) Exam Date: 07/21/18 Exam Time: 2144 REPORT STATUS: Signed EXAMINATION: CHEST SINGLE (PORTABLE) IN DICATION: Pneumonia. COMPARISON: None FINDINGS: AP view TUBES and LINES: None. LUNGS: Retrocardiac airspace opacity. PLEURA: No pleural effusion or pneumothorax. HEART AND MEDIASTINUM: The cardiomediastinal silhouette is unremarkable. There are atherosclerotic calcifications within the aorta. BONES AND SOFT TISSUES: No acute osseous lesion. Median sternotomy wires. Soft tissues are unremarkable. UPPER ABDOMEN: No free air under the diaphragm. IMPRESSION: Retrocardiac airspace opacity may represent atelectasis or developing pneumonia in the appropriate clinical setting. Signed by: DR. Fabio Metz MD on 07/21/2018 10:04 PM Dictated By: FABIO METZ MD 03 Transcribed By: CHAS on 07/21/182203 COPY TO: HUI MALDONADO PAYING TELLER
[2018-07-22] VITALS (8 sets, daily range): BP systolic 98–127; BP diastolic 60–87
[2018-07-22] MEDS ORDERED: SODIUM CHLORIDE 0.9% 250ML 250 ML ONE (00:37)
[2018-07-22] MEDS: SIMVASTATIN 40 MG TAB PO SCH ×2 (00:43→20:50)
[2018-07-22] MEDS: TEMAZEPAM 15 MG CAP PO SCH ×2 (00:43→20:50)
[2018-07-22] MEDS: DRONEDARONE 400 MG TAB PO SCH ×3 (00:43→20:49)
[2018-07-22 06:18] LABS: BASOPHILS % 0.6 % (0.0-1.0); EOSINOPHILS # (AUTO) 0.2 (0.0-0.4); EOSINOPHILS % 3.2 % (0.0-6.0); HEMATOCRIT 36.3 % (38.2-49.6); LYMPHOCYTES # (AUTO) 0.8 (1.0-3.2); LYMPHOCYTES % 15.9 % (18.0-39.1); MEAN CORPUSCULAR HEMOGLOBIN 32.9 pg (28-32); MEAN CORPUSCULAR HGB CONC 33.1 g/dL (31-35); MEAN CORPUSCULAR VOLUME 99.5 fL (81-99); MONOCYTES # (AUTO) 0.5 (0.2-0.8); NEUTROPHILS # (AUTO) 3.3 (2.1-6.9); NEUTROPHILS % 69.1 % (38.7-80.0); PLATELET COUNT 176 x10e3/uL (140-360); RED BLOOD COUNT 3.65 x10e6/uL (4.3-5.7); RED CELL DISTRIBUTION WIDTH 13.3 % (11.7-14.4)
[2018-07-22 06:52] LABS: ALBUMIN 3.1 g/dL (3.5-5.0); ALBUMIN/GLOBULIN RATIO 1.1 (0.8-2.0); ANION GAP 13.2 mmol/L (8-16); CALCIUM 8.9 mg/dL (8.4-10.2); CREATININE, SERUM 2.22 mg/dL (0.72-1.25); POTASSIUM 4.2 mmol/L (3.5-5.1)
[2018-07-22 06:59] LABS: CREATINE KINASE MB 3.1 ng/mL (0-5.0)
[2018-07-22] MEDS: CALCITRIOL 0.25 MCG CAP PO SCH (08:38)
[2018-07-22] MEDS: PANTOPRAZOLE SOD 40 MG TABEC PO SCH (08:38)
[2018-07-22] MEDS: OLMESARTAN 20 MG TAB PO SCH (08:38)
[2018-07-22] MEDS: CLOPIDOGREL BISULFATE 75 MG TAB PO SCH (08:38)
[2018-07-22] MEDS: ASPIRIN 81 MG CHEW TAB PO SCH (08:38)
[2018-07-22] MEDS: ALBUTEROL/IPRATROPIUM 3 ML NEB NEB SCH ×2 (14:10→19:45)
[2018-07-22 14:40] LABS: CREATINE KINASE MB 3.1 ng/mL (0-5.0)
--- NOTE | 2018-07-22 16:13 | NUR ---
CM SPOKE TO PATIENT AT BEDSIDE REGARDING IMM LETTER. IMM LETTER GIVEN WITH EXPLANATION BASED ON ANTICIPATED DISCHARGE DATE. ORIGINAL SIGNED AND PLACED IN CHART; COPY OF ORIGINAL DOCUMENT GIVEN TO PATIENT AT BEDSIDE AND PLACED IN CARE TRANSITION FOLDER. CM CONTACT INFORMATION GIVEN TO PATIENT FOR ANY NEEDS OR CONCERNS. PATIENT WITH NO FURTHER QUESTIONS.
[2018-07-22] MEDS: TRAZODONE HCL 50 MG TAB PO SCH (20:49)
[2018-07-22] MEDS: CEFTRIAXONE SOD 1 GM/NS 50 ML 50 ML IV SCH (20:50)
[2018-07-22] MEDS ORDERED: CEFTRIAXONE SOD 1 GM/NS 50 ML 50 ML IV SCH (22:00)
[2018-07-22] MEDS: AZITHROMYCIN 500MG/NS 250 ML 250 ML IV SCH (22:09)
[2018-07-23] VITALS (7 sets, daily range): BP systolic 87–143; BP diastolic 55–66
[2018-07-23] MEDS: ALBUTEROL/IPRATROPIUM 3 ML NEB NEB SCH ×4 (01:00→19:13)
[2018-07-23] MEDS: DRONEDARONE 400 MG TAB PO SCH ×2 (08:35→20:28)
[2018-07-23] MEDS: OLMESARTAN 20 MG TAB PO SCH (08:35)
[2018-07-23] MEDS: CALCITRIOL 0.25 MCG CAP PO SCH (08:35)
[2018-07-23] MEDS: PANTOPRAZOLE SOD 40 MG TABEC PO SCH (08:35)
[2018-07-23] MEDS: ASPIRIN 81 MG CHEW TAB PO SCH (08:35)
[2018-07-23] MEDS: CLOPIDOGREL BISULFATE 75 MG TAB PO SCH (08:35)
[2018-07-23] MEDS: ACETAMINOPHEN 325 MG TAB PO PRN ×2 (08:45→19:29)
--- NOTE | 2018-07-23 18:52 | Consultation ---
DATE OF CONSULTATION: Cardiology Consultation REASON FOR CONSULTATION: Shortness of breath. HISTORY OF PRESENT ILLNESS: This is an 83-year-old man with a history of paroxysmal atrial fibrillation on Multaq, coronary artery disease status post coronary artery bypass graft surgery, hypertension, hyperlipidemia, and pneumonia, who presented to the emergency department with progressively worsening shortness of breath. The patient also reports severe fatigue with his symptoms. The patient has symptoms progressing over the last 2 to 3 days, which have progressively worsened, marked severe in intensity, associated with some cough and shortness of breath. Upon arrival here, he was hemodynamically stable with mildly elevated troponin of 0.5, and was noted to have pneumonia. REVIEW OF SYSTEMS: A 12-point review of system was conducted, is negative, otherwise as stated above in the HPI. PAST MEDICAL HISTORY: As stated above. PAST SURGICAL HISTORY: CABG. FAMILY HISTORY: No premature coronary artery disease or sudden cardiac . SOCIAL HISTORY: No illicit drug use, alcohol use, or tobacco use. ALLERGIES: NO KNOWN DRUG ALLERGIES. MEDICATIONS: See medication reconciliation form. PHYSICAL EXAMINATION: VITAL SIGNS: Temperature is 96.4, heart rate is 72, respirations are 20, blood pressure is 124/85, and oxygen saturation 98% on room air. GENERAL: He is well-appearing well-built elderly man, lying comfortably in bed. HEENT: Head, normocephalic and atraumatic. Eyes, the extraocular muscles are intact. Conjunctivae are clear. NECK: No JVD. No bruits. CARDIOVASCULAR: Regular rate with ectopy. No murmurs. LUNGS: Clear to auscultation. ABDOMEN: Soft, nontender, and nondistended. Normoactive bowel sounds. EXTREMITIES: No clubbing, cyanosis, or edema. VASCULAR: 2+ pulses. SKIN: Warm, dry, intact. NEUROLOGIC: No focal deficits noted. LABORATORY DATA: Reviewed. Creatinine 2.2. Troponin I 0.7, 0.5, and 0.5. BNP is 2229. Chest x-ray shows retrocardiac airspace opacity. TELEMETRY: Monitoring revealed sinus rhythm with premature ventricular complexes. IMPRESSION: 1. Shortness of breath. 2. Pneumonia. 3. Acute congestive heart failure. 4. Fxvpz-jz-hhhxazg kidney disease. 5. Premature ventricular complexes. 6. Paroxysmal atrial fibrillation. 7. Coronary artery disease, status post coronary artery bypass graft surgery. 8. Hypertension. 9. Hyperlipidemia. RECOMMENDATIONS: We will check a 2D echocardiogram. The patient has been started on antibiotics for his pneumonia. Continue aspirin, Plavix, olmesartan, Multaq, and simvastatin. We will add low-dose Lasix for diuresis. Thank you for the consultation. We will follow along with you. DO REBEKAH Benton/MODL /[id number]
--- NOTE | 2018-07-23 19:20 | NUR ---
Received patient awake on bed, family members at the bedside, not in distress. Call light within easy reach, advised to call for assistance when needed, will continue to monitor
[2018-07-23] MEDS: TRAZODONE HCL 50 MG TAB PO SCH (20:27)
[2018-07-23] MEDS: SIMVASTATIN 40 MG TAB PO SCH (20:28)
[2018-07-23] MEDS: TEMAZEPAM 15 MG CAP PO SCH (20:28)
[2018-07-23] MEDS ORDERED: SODIUM CHLORIDE 0.9% 250ML 250 ML ONE (20:40)
[2018-07-23] MEDS: CEFTRIAXONE SOD 1 GM/NS 50 ML 50 ML IV SCH (21:23)
[2018-07-23] MEDS: AZITHROMYCIN 500MG/NS 250 ML 250 ML IV SCH (22:19)
[2018-07-24] VITALS (7 sets, daily range): BP systolic 96–119; BP diastolic 58–87
[2018-07-24] MEDS: ALBUTEROL/IPRATROPIUM 3 ML NEB NEB SCH ×4 (01:00→20:00)
[2018-07-24] MEDS: OLMESARTAN 20 MG TAB PO SCH (09:16)
[2018-07-24] MEDS: ASPIRIN 81 MG CHEW TAB PO SCH (09:16)
[2018-07-24] MEDS: DRONEDARONE 400 MG TAB PO SCH (09:17)
[2018-07-24] MEDS: PANTOPRAZOLE SOD 40 MG TABEC PO SCH (09:17)
[2018-07-24] MEDS: CLOPIDOGREL BISULFATE 75 MG TAB PO SCH (09:17)
[2018-07-24] MEDS: ACETAMINOPHEN 325 MG TAB PO PRN ×3 (09:17→22:07)
[2018-07-24] MEDS: CALCITRIOL 0.25 MCG CAP PO SCH (09:17)
[2018-07-24] MEDS ORDERED: LIDOCAINE 5% PATCH TP SCH (13:30)
--- NOTE | 2018-07-24 13:30 | NUR ---
Dr.S Negrete aware of back pain. See orders
[2018-07-24] MEDS ORDERED: METOPROLOL SUCCINATE 50 MG TAB XL PO SCH (14:45)
--- NOTE | 2018-07-24 15:40 | NUR ---
BP 102/60 P85 manually. aware of BP. See orders. Per "okay to give metoprolol 25mg"
[2018-07-24] MEDS: METOPROLOL SUCCINATE 50 MG TAB XL PO SCH (15:55)
--- NOTE | 2018-07-24 17:07 | Progress Note ---
DATE: Cardiology Progress Note SUBJECTIVE: The patient is feeling better. Still some shortness of breath. No chest pain. OBJECTIVE: VITAL SIGNS: Temperature is 97.1, heart rate is 92, respirations are 20, blood pressure is 104/67, and oxygen saturation 97% on room air. GENERAL: He is a well-appearing elderly man seated at bedside. HEAD: Normocephalic, atraumatic. CARDIOVASCULAR: Regular rate and rhythm with ectopy. LUNGS: Diminished breath sounds in the bilateral bases. ABDOMEN: Soft, nontender. EXTREMITIES: Trace edema. CARDIOVASCULAR MEDICATIONS: Reviewed. LABORATORY DATA: Reviewed. TELEMETRY: Monitoring revealed a sinus rhythm with premature ventricular complexes. A 2D echocardiogram showed left ventricular ejection fraction of 30% to 35%. IMPRESSION: 1. Acute likely on chronic systolic congestive heart failure. 2. Pneumonia. 3. Shortness of breath. 4. Duxvj-xp-wrnqvsk kidney disease. 5. Premature ventricular complexes. 6. Paroxysmal atrial fibrillation. 7. Coronary artery disease, status post coronary artery bypass graft surgery. RECOMMENDATIONS: I would discontinue the Multaq given his new diagnosis of heart failure. This is contraindicated and worsening or symptomatic heart failure. We will start Toprol-XL for rhythm control and his heart failure. Otherwise, continue olmesartan and all other current cardiovascular medications. DO REBEKAH Benton/MODL /[id number]
--- NOTE | 2018-07-24 19:13 | NUR ---
Report given to oncoming nurse. No s/s of acute distress note. Family at bedside.
[2018-07-24] MEDS: CEFTRIAXONE SOD 1 GM/NS 50 ML 50 ML IV SCH (20:23)
[2018-07-24] MEDS: TRAZODONE HCL 50 MG TAB PO SCH ×2 (20:23→20:29)
[2018-07-24] MEDS: TEMAZEPAM 15 MG CAP PO SCH ×2 (20:23→20:29)
[2018-07-24] MEDS: SIMVASTATIN 40 MG TAB PO SCH (20:23)
[2018-07-24] MEDS: AZITHROMYCIN 500MG/NS 250 ML 250 ML IV SCH (22:03)
[2018-07-25] VITALS: BP 98/60
[2018-07-25] MEDS: ALBUTEROL/IPRATROPIUM 3 ML NEB NEB SCH ×2 (00:32→07:30)
[2018-07-25] MEDS: ACETAMINOPHEN 325 MG TAB PO PRN (03:38)
[2018-07-25 04:00] VITALS: BP 107/81
--- NOTE | 2018-07-25 06:11 | Diagnostic Imaging Report ---
EXAMINATION: CHEST 2 VIEWS INDICATION: pna COMPARISON: Chest x-ray 07/21/2018 FINDINGS: PA and lateral views TUBES and LINES: None. LUNGS: Mild bibasilar atelectasis. There is no evidence of pneumonia or pulmonary edema. PLEURA: No pleural effusion or pneumothorax. HEART AND MEDIASTINUM: The cardiomediastinal silhouette is unremarkable. BONES AND SOFT TISSUES: No acute osseous lesion. Median sternotomy wires. The superior two wires are fractured. Soft tissues are unremarkable. UPPER ABDOMEN: No free air under the diaphragm. IMPRESSION: No acute thoracic abnormality. Signed by: DR. Fabio Lagunas MD on 07/25/2018 6:08 AM
--- NOTE | 2018-07-25 07:10 | NUR ---
RCD PT AT BED PT IS ALERT AND ORIENTED PT RESTING ON BED IV PATENT BED LOW AND LOCKED CALL LIGHT IN REACH
[2018-07-25 08:19] VITALS: BP 122/77
[2018-07-25] MEDS: CLOPIDOGREL BISULFATE 75 MG TAB PO SCH (09:00)
[2018-07-25] MEDS: ASPIRIN 81 MG CHEW TAB PO SCH (09:00)
[2018-07-25] MEDS ORDERED: METOPROLOL SUCCINATE 50 MG TAB XL PO SCH (09:00)
[2018-07-25] MEDS: OLMESARTAN 20 MG TAB PO SCH (09:00)
[2018-07-25] MEDS: PANTOPRAZOLE SOD 40 MG TABEC PO SCH (09:00)
[2018-07-25] MEDS: METOPROLOL SUCCINATE 50 MG TAB XL PO SCH (09:00)
[2018-07-25] MEDS: CALCITRIOL 0.25 MCG CAP PO SCH (09:00)
[2018-07-25 10:00] VITALS: BP 122/77
--- NOTE | 2018-07-25 11:13 | NUR ---
PAGED AND TALKED DR LANDAVERDE REGARDING DISCHARGE HE SAID HE COMING TO SEE THE PATIENT
--- NOTE | 2018-07-25 11:25 | NUR ---
DR LANDAVERDE CAME TO SEE THE PT AND GOT THE DISCHARGE APPROVAL
[2018-07-25] MEDS ORDERED: ZPACK PO (11:27)
[2018-07-25] MEDS ORDERED: METOPROLOL TART25 MG PO (11:51)
[2018-07-25] MEDS ORDERED: AMIODARONE HCL200 MG PO (11:52)
--- NOTE | 2018-07-25 12:09 | NUR ---
pt went home in safe condition with his daughter
== END 2018-07-25 12:09 | disposition home or self-care (01) | DRG 291 ==
LOC: ER 21:06 → ERHOLD 23:37 → MED/SURG2 07-22 00:01
DX: I13.0 Hypertensive heart and chronic kidney disease with heart failure and stage 1 through stage 4 chronic kidney disease, or unspecified chronic kidney disease (principal); J18.9 Pneumonia, unspecified organism; I50.23 Acute on chronic systolic (congestive) heart failure; I48.0 Paroxysmal atrial fibrillation; Z79.01 Long term (current) use of anticoagulants; I25.10 Atherosclerotic heart disease of native coronary artery without angina pectoris; Z95.1 Presence of aortocoronary bypass graft; E78.5 Hyperlipidemia, unspecified; N18.9 Chronic kidney disease, unspecified; I49.3 Ventricular premature depolarization; N18.3 Chronic kidney disease, stage 3 (moderate)
CPT/HCPCS: 36415; 71045; 71046; 80053; 82550; 82553; 83880; 84484; 85025; 87040; 93005; 93306; 94640; 99284; J0456; J0696; J7050